=== PATIENT | male | born 1945 | race Caucasian/White ===

== ENCOUNTER 2017-05-09 07:26 | Outpatient (CLI) | payer MEDICARE, OTHER ==
[2017-05-09] MEDS ORDERED: REGADENOSON 0.4 MG/5 ML DISP.SYRIN IVP ONE (09:00)
== END 2017-05-09 23:59 | disposition home or self-care (01) ==
LOC: NM 07:26
PROVIDERS: ATTEND Internal Medicine Interventional Cardiology
DX: R07.89 Other chest pain (principal); R06.00 Dyspnea, unspecified
CPT/HCPCS: 78452; A9502; J2785

== ENCOUNTER 2017-06-30 05:26 | Emergency (ER) | payer MEDICARE, OTHER ==
[~2017-06-30] VITALS: Ht 167.6 cm; Wt 88.0 kg
--- NOTE | 2017-06-30 05:45 | NUR ---
BIBSELF C/O RLQ ABD PAIN, PAINFUL URINATION. HEMATURIA X 2 DAYS; [facility] OUTPT SURGERY MAY 2ND LITHOTRIPSY/ RIGHT KIDEY STENT PLACED. PATIENT IS AAOX4, NAD NOTED. VSS. SKIN WARM AND DRY. NONDIAPHORETIC. PLACED ON MONITOR. COMFORT MEASURES RENDERED.
--- NOTE | 2017-06-30 06:00 | NUR ---
STARTED A SALINE LOCK ON THE RAC G18, BLOOD DRAWN AND SENT TO LAB.
[2017-06-30 06:09] LABS: APPEARANCE,URINE CLOUDY (CLEAR); BILIRUBIN,URINE NEGATIVE (NEGATIVE); BLOOD, URINE 3+ Ery/uL (NEGATIVE); COLOR,URINE AMBER (YELLOW); KETONES,URINE NEGATIVE (NEGATIVE); LEUKOCYTE ESTERASE ,URINE 3+ (NEGATIVE); NITRITE, URINE POSITIVE (NEGATIVE); PROTEIN,URINE 3+ mg/dl (NEGATIVE); UGLUCOSE NEGATIVE (NEGATIVE); UROBILINOGEN,URINE 0.2 EU/dL (0.2)
[2017-06-30 06:09] LABS: BASOPHILS % (AUTO) 0.2 % (0.0-2.0); EOSINOPHILS % (AUTO) 0.5 % (0.0-6.0); HEMATOCRIT 39 % (39-51); HEMOGLOBIN 13.6 g/dL (13.5-17.5); LYMPHOCYTES # (AUTO) 0.7 /CMM (0.8-4.8); LYMPHOCYTES % (AUTO) 7.3 % (20.0-44.0); MEAN CORPUSCULAR HGB CONC 35 g/dl (31.0-36.0); MEAN CORPUSCULAR VOLUME 94 fL (80-96); MONOCYTES # (AUTO) 0.9 /CMM (0.1-1.30); MONOCYTES % (AUTO) 9.7 % (2.0-12.0); NEUTROPHILS # (AUTO) 7.9 /CMM (1.8-8.9); NEUTROPHILS % (AUTO) 82.3 % (43.0-81.0); PLATELET COUNT (AUTO) 163 /CMM (150-450); RDW COEFFICIENT OF VARIATION 12.1 (11.5-15.0); RED BLOOD CELL COUNT(AUTO) 4.16 MIL/uL (4.5-6.0); WHITE BLOOD COUNT (AUTO) 9.6 K/uL (4.3-11.0)
[2017-06-30] MEDS ORDERED: KETOROLAC TROMETHAMINE 15 MG/ML VIAL ONE (06:16)
[2017-06-30 06:21] LABS: CALCIUM, SERUM 9.5 mg/dL (8.5-10.1); CARBON DIOXIDE 26 mmol/L (21-32); CHLORIDE 105 mmol/L (98-107); CREATININE 1.7 mg/dL (0.6-1.3); GLUCOSE 139 mg/dL (74-106); SODIUM SERUM 141 mmol/L (136-145); UREA NITROGEN, BLOOD 21 mg/dL (7-18)
[2017-06-30 06:21] LABS: BACTERIA,URINE 2+ /HPF (None Seen); RBC,URINE TOO NUMEROUS TO COUN /HPF (0-2); SQUAMOUS EPITHELIAL CELL,UR Few /HPF (None Seen); WBC,URINE 51-80 /HPF (0-3)
--- NOTE | 2017-06-30 06:21 | NUR ---
MEDICATED PATIENT ORDERED BY DR REBOLLEDO.
[2017-06-30 06:27] LABS: ALANINE AMINOTRANSFERASE 37 U/L (12-78); ALBUMIN 4.1 g/dL (3.4-5.0); ALKALINE PHOSPHATASE 51 U/L (46-116); ASPARTATE AMINOTRANSFERASE 22 U/L (15-37); BILIRUBIN,DIRECT 0.2 mg/dL (0.0-0.2); BILIRUBIN,TOTAL 0.8 mg/dL (0.2-1.0); LIPASE 154 U/L (73-393); TOTAL PROTEIN, SERUM 7.8 g/dL (6.4-8.2)
[2017-06-30] MEDS ORDERED: IV NS 0.9% 1,000 ML BAG IV ONE (06:30)
[2017-06-30] MEDS ORDERED: CEFTRIAXONE 1GM BAG (ER ONLY) 1 GM/50 ML PIGGYBACK IV ONE (06:30)
[2017-06-30] MEDS ORDERED: KETOROLAC TROMETHAMINE INJ 30 MG/ML VIAL IV ONE (06:30)
[2017-06-30] MEDS ORDERED: CEFTRIAXONE 1GM BAG (ER ONLY) 50 ML IV ONE (06:31)
--- NOTE | 2017-06-30 07:28 | NUR ---
Dr Jaime at for an update and re-eval.
--- NOTE | 2017-06-30 07:38 | NUR ---
IV removed. Catheter intact and site benign. Pressure and 4x4 applied to site. No bleeding noted.Patient discharged to home in stable condition. Written and verbal after care instructions given. Patient verbalizes understanding of instruction.
[2017-06-30 07:40] VITALS: BP 139/88
[2017-06-30 07:52] LABS: INR 0.98 (0.87-1.13)
== END 2017-06-30 07:42 | disposition home or self-care (01) ==
LOC: ER 05:29
DX: N30.00 Acute cystitis without hematuria (principal); N20.0 Calculus of kidney; I10 Essential (primary) hypertension; E11.9 Type 2 diabetes mellitus without complications; M10.9 Gout, unspecified; F32.9 Major depressive disorder, single episode, unspecified; Z86.73 Personal history of transient ischemic attack (TIA), and cerebral infarction without residual deficits; Z90.49 Acquired absence of other specified parts of digestive tract
CPT/HCPCS: 36415; 74176; 80048; 80076; 81001; 83690; 85025; 85730; 87086; 96365; 96375; 99285; A4606; J0696; J1885; J7030; 81000-TC; Z7610

== ENCOUNTER 2018-03-26 10:52 | Inpatient (IN) | payer MEDICARE, MEDICAID ==
[~2018-03-26] VITALS: Ht 167.6 cm; Wt 88.0 kg
[2018-03-26] VITALS: BP 132/68
--- NOTE | 2018-03-26 11:03 | NUR ---
PT BIBRA FROM HOME FOR R SIDED AND DYSARTHRIA X 1HR. PT AAOX4, RESPIRATIONS EVEN AND UNLABORED, NO SOB, NAD NOTED, NO DIZZINESS, NO N/V, PT ON MONITOR, VSS, PENDING MD RESENDIZ
[2018-03-26 11:16] LABS: BASOPHILS % (AUTO) 0.4 % (0.0-2.0); EOSINOPHILS % (AUTO) 0.9 % (0.0-6.0); HEMATOCRIT 40 % (39-51); HEMOGLOBIN 13.7 g/dL (13.5-17.5); LYMPHOCYTES # (AUTO) 1.5 /CMM (0.8-4.8); MEAN CORPUSCULAR HGB CONC 34 g/dl (31.0-36.0); MEAN CORPUSCULAR VOLUME 96 fL (80-96); MONOCYTES # (AUTO) 0.6 /CMM (0.1-1.30); MONOCYTES % (AUTO) 13.7 % (2.0-12.0); NEUTROPHILS # (AUTO) 2.3 /CMM (1.8-8.9); PLATELET COUNT (AUTO) 136 /CMM (150-450); RED BLOOD CELL COUNT(AUTO) 4.21 MIL/uL (4.5-6.0); WHITE BLOOD COUNT (AUTO) 4.4 K/uL (4.3-11.0)
[2018-03-26] MEDS ORDERED: CLOP75TA15 PO (11:19)
[2018-03-26] MEDS ORDERED: GLIP2.5T3 PO (11:19)
[2018-03-26] MEDS ORDERED: LISI-603 PO (11:19)
[2018-03-26] MEDS ORDERED: ROSU10TA28 PO (11:19)
[2018-03-26] MEDS ORDERED: FEBU40TA PO (11:19)
[2018-03-26] MEDS ORDERED: FOLI1TAB16 PO (11:19)
[2018-03-26] MEDS ORDERED: FERR325T23 PO (11:19)
[2018-03-26] MEDS ORDERED: SITA25TA PO (11:19)
[2018-03-26] MEDS ORDERED: MELO-107 PO (11:19)
[2018-03-26] MEDS ORDERED: FENO134C PO (11:19)
[2018-03-26 11:31] LABS: CALCIUM, SERUM 9.2 mg/dL (8.5-10.1); CARBON DIOXIDE 29 mmol/L (21-32); CHLORIDE 106 mmol/L (98-107); CREATININE 1.4 mg/dL (0.6-1.3); GLUCOSE 129 mg/dL (74-106); UREA NITROGEN, BLOOD 25 mg/dL (7-18)
[2018-03-26 11:37] LABS: SODIUM SERUM 142 mmol/L (136-145)
[2018-03-26 11:52] LABS: CHOLESTEROL 123 mg/dL (<200); HDL CHOLESTEROL 38 mg/dL (40-60); LDL 67 mg/dL (0-99); TRIGLYCERIDES 161 mg/dL (30-150)
[2018-03-26] MEDS ORDERED: ASPIRIN 325 MG TABLET ONE (12:16)
[2018-03-26] MEDS ORDERED: ASPIRIN 325 MG TABLET PO ONE (12:30)
--- NOTE | 2018-03-26 12:33 | NUR ---
GOT BED 104 TELE
--- NOTE | 2018-03-26 13:10 | NUR ---
REPORT GIVEN TO JOSE E MATHEW FOR TITA
[2018-03-26 13:35] VITALS: BP 167/67
--- NOTE | 2018-03-26 13:35 | NUR ---
RN NOTE PT ARRIVED FROM ER IN STABLE CONDITION, VS STABLE, AOX4, NO SPEECH DEFICIT, NO MUSCULAR DEFICIT, STEADY GAIT. DENIES PAIN, SB 55 ON THE MONITOR, IV IN LEFT HAND 20 G INTACT, DRY, CLEAN. SKIN INTACT. SAFETY MEASURES IN PLACE, CALL LIGHT WITHIN REACH.
[2018-03-26 14:27] LABS: THYROID STIMULATING HORMONE 2.267 uIU/mL (0.358-3.74)
[2018-03-26] MEDS ORDERED: IV NS 0.9% 250 ML IV ONE (14:53)
[2018-03-26] MEDS ORDERED: IOHEXOL-350 100 ML VIAL IV ONE (14:53)
[2018-03-26] MEDS ORDERED: CT SWABBABLE VALVE TRANS SET 1 EA INFUS.SET MC ONE (14:53)
[2018-03-26 16:00] VITALS: BP 125/68
[2018-03-26] MEDS: BLOOD SUGAR DIAGNOSTIC 1 EACH STRIP IN SCH ×2 (17:30→21:46)
[2018-03-26] MEDS ORDERED: BLOOD SUGAR DIAGNOSTIC 1 EACH STRIP IN SCH (18:00)
[2018-03-26 20:00] VITALS: BP 124/57
--- NOTE | 2018-03-26 20:00 | NUR ---
RN INITIAL NOTE RECEIVED PT SITTING ON BED, AOX4, NO S DENIES PAIN, SB 55 ON THE MONITOR, IV IN LEFT HAND 20 G INTACT S/L, DRY, CLEAN. SKIN INTACT. SAFETY MEASURES IN PLACE, CALL LIGHT WITHIN REACH. WILL CONT TO MONITOR.
[2018-03-26] MEDS ORDERED: ATORVASTATIN 40 MG TABLET PO SCH (22:00)
[2018-03-26] MEDS ORDERED: ATORVASTATIN 10 MG TABLET PO SCH (22:00)
[2018-03-27] VITALS: BP 132/68
[2018-03-27 04:00] VITALS: BP 143/66
[2018-03-27 06:31] LABS: BASOPHILS % (AUTO) 0.5 % (0.0-2.0); EOSINOPHILS % (AUTO) 1.7 % (0.0-6.0); HEMATOCRIT 37 % (39-51); HEMOGLOBIN 12.5 g/dL (13.5-17.5); LYMPHOCYTES # (AUTO) 2.3 /CMM (0.8-4.8); LYMPHOCYTES % (AUTO) 39.1 % (20.0-44.0); MEAN CORPUSCULAR HGB CONC 34 g/dl (31.0-36.0); MEAN CORPUSCULAR VOLUME 95 fL (80-96); MONOCYTES # (AUTO) 0.8 /CMM (0.1-1.30); MONOCYTES % (AUTO) 14.1 % (2.0-12.0); NEUTROPHILS # (AUTO) 2.6 /CMM (1.8-8.9); NEUTROPHILS % (AUTO) 44.6 % (43.0-81.0); PLATELET COUNT (AUTO) 136 /CMM (150-450); RED BLOOD CELL COUNT(AUTO) 3.86 MIL/uL (4.5-6.0); WHITE BLOOD COUNT (AUTO) 5.9 K/uL (4.3-11.0)
[2018-03-27 06:44] LABS: CALCIUM, SERUM 9.1 mg/dL (8.5-10.1); CARBON DIOXIDE 29 mmol/L (21-32); CHLORIDE 109 mmol/L (98-107); GLUCOSE 108 mg/dL (74-106); SODIUM SERUM 144 mmol/L (136-145)
[2018-03-27 06:45] LABS: CREATININE 1.4 mg/dL (0.6-1.3); UREA NITROGEN, BLOOD 22 mg/dL (7-18)
--- NOTE | 2018-03-27 07:25 | NUR ---
INSTITUTIONAL COOK OPENING NOTES RECEIVED PT LAYING IN BED, WITH HOB ELEVATED, PT IS ALERT AND ORIENTED X4, PT IS ON ROOM AIR, SATURATING WELL, RR EVEN AND UNLABORED, NO SOB NOTED, PT ON TELE WITH SINUS TUTU AND HR 47, IV SITES ARE INTACT TO LAC 18G SALINE LOCK, DRESSING KEPT CLEAN AND DRY, BED LOCKED AND LOW, CALL LIGHT WITHIN REACH, SIDE RAILS UP X2, WILL MONITOR THROUGHOUT SHIFT FOR CONTINUITY OF CARE.
[2018-03-27] MEDS ORDERED: PANTOPRAZOLE 40 MG TABLET.DR PO SCH (07:30)
[2018-03-27 08:00] VITALS: BP 130/65
[2018-03-27] MEDS: BLOOD SUGAR DIAGNOSTIC 1 EACH STRIP IN SCH ×2 (08:14→12:00)
[2018-03-27 08:37] VITALS: BP 130/65
[2018-03-27] MEDS ORDERED: CLOPIDOGREL BISULFATE 75 MG TABLET PO SCH (09:00)
[2018-03-27] MEDS ORDERED: FENOFIBRATE NANOCRYS (145 MG) 145 MG TABLET PO SCH (09:00)
[2018-03-27] MEDS ORDERED: FERROUS SULFATE (325 MG) 325 MG/TAB TABLET PO SCH (09:00)
[2018-03-27] MEDS ORDERED: FOLIC ACID 1 MG TABLET PO SCH (09:00)
[2018-03-27] MEDS ORDERED: LISINOPRIL (20MG) 20 MG TABLET PO SCH (09:00)
--- NOTE | 2018-03-27 13:00 | NUR ---
MS RN NOTES DR.MAHYAR CARRINGTON,NEUROLOGIST SEEN THE PT AND ORDERED TO CHECK ORTHOSTATIC BP. SITTING-153/79 HR-51 STANDING-143/78 HR-60 LYING-150/72 HR-51 NEW ORDERS NOTED AND CARRIED OUT.
[2018-03-27] MEDS ORDERED: ATOR40TA PO (13:40)
[2018-03-27] MEDS ORDERED: DOXA1TAB17 PO (13:40)
--- NOTE | 2018-03-27 14:40 | NUR ---
MS DORANTESTRANSPORTATION PROJECT MANAGER NOTES TO D/C HOME.ALL THE DISCHARGE MEDICATIONS AND TREATMENTS HAS DISCUSSED WITH THE PT.THE MEDICATION PRESCRIPTION GIVEN TO THE PT AND SKIN ASSESSMENT IS DONE,IT IS INTACT.VITAL SIGNS ARE CHECKED AND RECORDED.TOLERATING WELL IN ROOM AIR,NO SOB AND ACUTE DISTRESS NOTED.BELONGING LIST SIGNED BY THE PT.PT AMBULATED TO THE PARKING LOT AND PICKED UP BY HIS ,ANALIA. Addendum: 03/27/18 at 1502 by RUSSELL DUMAS RN ALL THE DISCHARGE INSTRUCTION AND FOLLOW UP APPOINTMENT DISCUSSED TO THE PT BY THE CHARGE NURSE.
[2018-03-27] MEDS ORDERED: DOXAZOSIN MESYLATE (1 MG) 1 MG TABLET PO SCH (22:00)
== END 2018-03-27 14:39 | disposition home or self-care (01) | DRG 69 ==
LOC: ER 10:53 → TELE1 12:43 → MEDSG1 03-27 10:16
PROVIDERS: ADMIT Nurse Practitioner Acute Care; ATTEND Family Medicine
DX: G45.9 Transient cerebral ischemic attack, unspecified (principal); N17.9 Acute kidney failure, unspecified; N18.9 Chronic kidney disease, unspecified; I12.9 Hypertensive chronic kidney disease with stage 1 through stage 4 chronic kidney disease, or unspecified chronic kidney disease; E78.5 Hyperlipidemia, unspecified; Z86.73 Personal history of transient ischemic attack (TIA), and cerebral infarction without residual deficits; Z87.891 Personal history of nicotine dependence; Z96.652 Presence of left artificial knee joint; M10.9 Gout, unspecified; E11.22 Type 2 diabetes mellitus with diabetic chronic kidney disease; Z79.1 Long term (current) use of non-steroidal anti-inflammatories (NSAID); R47.1 Dysarthria and anarthria; G31.9 Degenerative disease of nervous system, unspecified; M48.02 Spinal stenosis, cervical region; M50.30 Other cervical disc degeneration, unspecified cervical region; E11.42 Type 2 diabetes mellitus with diabetic polyneuropathy
CPT/HCPCS: 36415; 70450-TC; 70496-TC; 70498-TC; 71045-TC; 80048-TC; 80061-TC; 82962-TC; 83880; 84443-TC; 84484-TC; 85025-TC; 85652-TC; 85730-TC; 87081-TC; 92611-TC; 93307-TC; 93880-TC; G0378; J7050; Q9967

== ENCOUNTER → 2019-03-25 | Day surgery (SDC) | payer MEDICARE, MEDICAID ==
[~2019-03-25] VITALS: Ht 167.6 cm; Wt 83.5 kg
[~2019-03-25] MED LIST: ATOR40TA PO; CLOP75TA15 PO; CT SWABBABLE VALVE TRANS SET 1 EA INFUS.SET MC ONE; DOXA1TAB17 PO; FEBU40TA PO; FENO134C PO; FERR325T23 PO; FOLI1TAB16 PO; GLIP2.5T3 PO; IOHEXOL-350 100 ML VIAL IV ONE; IV NS 0.9% 1,000 ML BAG IV ONE; IV NS 0.9% 250 ML IV ONE; LISI-603 PO; MELO-107 PO; METOPROLOL TARTRATE INJ 5 MG/5 ML AMPUL ONE; NITROGLYCERIN 0.4 MG/TAB BOTTLE SL ONE; SITA25TA PO
[2019-03-25 09:47] LABS: CALCIUM, SERUM 9.4 mg/dL (8.5-10.1); CARBON DIOXIDE 28 mmol/L (21-32); CHLORIDE 109 mmol/L (98-107); CREATININE 1.5 mg/dL (0.6-1.3); GLUCOSE 128 mg/dL (74-106); POTASSIUM 4.3 mmol/L (3.5-5.1); SODIUM SERUM 144 mmol/L (136-145); UREA NITROGEN, BLOOD 22 mg/dL (7-18)
[2019-03-25] MEDS: METOPROLOL TARTRATE INJ 5 MG/5 ML AMPUL IVP PRN ×2 (12:00→12:05)
--- NOTE | 2019-03-25 12:11 | NUR ---
Outpatient. Labs (creatinenine of 1.5 and eGFR reviewed with Dr Hsieh via phone with tel shadider to given 1 Liter of NS before and 1 liter of NS post CTA, pt amenable. CTA heart completed given Lopressor 10 mg iVP total, VSS stable, denies CP/SOB. report given to day surgery RN; transferred to day surgery via wheelchair
--- NOTE | 2019-03-25 12:30 | NUR ---
PROOF COIN COLLECTOR RECEDED PT FROM XRAY WITH RN, VS STABLE NO DISTRESS NOTED CONNECTED PT TO NS ORDERED FOR IV HYDRATION AND WILL CONTINUE TO MONITOR.
[2019-03-25 12:40] VITALS: BP 120/67
[2019-03-25 13:02] VITALS: BP 134/66
[2019-03-25 13:19] VITALS: BP 129/68
--- NOTE | 2019-03-25 13:21 | NUR ---
MANAGER SOCIAL MEDIA IV BOLUS FINISH PT VS STATED NO DISTRESS NOTED LUNG SOUNDS CLEAR NO SOB PT SAT 99% RR 18 DC INSTRUCTIONS TOUGHT AND PROVIDED PT HAS GOOD UNDERSTANDING OF INSTRUCTIONS LEFT HOME AOX4 STABLE VIA PRIVATE CAR.
== END | disposition home or self-care (01) ==
LOC: CT 09:02
PROVIDERS: ATTEND Internal Medicine Interventional Cardiology
DX: I25.10 Atherosclerotic heart disease of native coronary artery without angina pectoris (principal); I10 Essential (primary) hypertension; M47.814 Spondylosis without myelopathy or radiculopathy, thoracic region
CPT/HCPCS: 36415; 75574; 80048; J3490; J7050; Q9967